=== PATIENT | female | born 1965 | race African-American/Black ===

== ENCOUNTER 2016-09-15 07:57 | Emergency (ER) | payer BC ==
[~2016-09-15] VITALS: Ht 167.6 cm; Wt 142.0 kg
[~2016-09-15 07:57] MED LIST: CALAN PO; ENAL0 PO; ENALAPRIL MALEA20 MG PO; HCTZ PO; LASIX 40 MG TAB40 M2 PO; LEVOTHYROXIN0.075 MG PO; NAPROXEN SODIU550 MG PO; NORVASC5 MG PO; ONE DAILY WOME1 EAC3 PO; TOPROL XL100 MG PO; TRAMADOL HCL50 MG PO; VITAMIN B12-FO1 EAC1 PO
[2016-09-15] MEDS ORDERED: CARVEDILOL12.5 MG PO (08:19)
[2016-09-15] MEDS ORDERED: ZANTAC 150MG T150 MG PO (08:19)
[2016-09-15] MEDS ORDERED: ALDACTONE50 MG PO (08:20)
[2016-09-15] MEDS ORDERED: LIPITOR 20 MG T20 M1 PO (08:20)
[2016-09-15 08:43] LABS: URINE BILIRUBIN NEGATIVE (Negative); URINE BLOOD 3+ (Negative); URINE COLOR YELLOW; URINE GLUCOSE-RANDOM* NEGATIVE (Negative); URINE KETONES NEGATIVE (Negative); URINE NITRITE NEGATIVE (Negative); URINE PROTEIN (DIPSTICK) NEGATIVE (Negative); URINE SPECIFIC GRAVITY 1.015 (1.003-1.035)
[2016-09-15 08:46] LABS: ABSOLUTE NEUTROPHILS 7.6 thou/uL (1.4-8.2); BASOPHILS 0.5 % (0.0-2.0); EOSINOPHILS 1.3 % (0.0-3.0); HEMATOCRIT 38.3 % (37.0-47.0); HEMOGLOBIN 12.9 gm/dL (12.0-15.0); LYMPHOCYTES 14.1 % (24.0-44.0); MCH 30.2 pg (26.0-34.0); MCHC 33.7 g/dL (28.0-37.0); MCV 89.6 fL (80.0-100.0); MONOCYTES 10.3 % (1.0-8.0); PLATELET COUNT 290 thou/uL (150-400); POLYS 73.8 % (36.0-66.0); RBC 4.28 mil/uL (4.20-5.00); RDW 13.2 % (10.5-14.5); WBC 10.3 thou/uL (4.0-11.0)
[2016-09-15 08:50] LABS: MANUAL DIFF NO
[2016-09-15 08:59] LABS: CALCIUM 9.9 mg/dL (8.5-10.1); CREATININE 0.8 mg/dL (0.6-1.0); POTASSIUM 4.2 mmol/L (3.5-5.1)
[2016-09-15 09:37] LABS: CASTS None Seen /LPF (None Seen); CRYSTALS None Seen /LPF (None Seen); SQUAMOUS 4-10 Moderate /LPF (0-3)
[2016-09-15 09:38] LABS: BACTERIA 1-9 Few /HPF (None Seen); URINE RBC >20 Many /HPF (0-2); URINE WBC 0-5 Rare /HPF (0-5)
[2016-09-15] MEDS ORDERED: HYDROCODONE-AP1 EAC6 PO (10:28)
[2016-09-15] MEDS ORDERED: KEFLEX500 MG PO (10:28)
== END 2016-09-15 11:10 | disposition home or self-care (01) ==
LOC: ER 07:57
PROVIDERS: Emergency Medicine
DX: R10.9 Unspecified abdominal pain (principal); I10 Essential (primary) hypertension; K21.9 Gastro-esophageal reflux disease without esophagitis; E03.9 Hypothyroidism, unspecified; Z86.2 Personal history of diseases of the blood and blood-forming organs and certain disorders involving the immune mechanism; Z88.1 Allergy status to other antibiotic agents; Z88.6 Allergy status to analgesic agent